=== PATIENT | female | born 1955 | race Hispanic/Latino ===

== ENCOUNTER 2024-05-02 16:20 | Emergency (ER) | payer MEDICARE ==
[~2024-05-02] VITALS: Ht 157.5 cm; Wt 85.8 kg
[2024-05-02] MEDS ORDERED: METFORMIN HCL500 M2 PO (17:31)
[2024-05-02] MEDS ORDERED: ATORVASTATIN CA20 MG PO (17:31)
[2024-05-02] MEDS ORDERED: AMLODIPINE BESY10 MG PO (18:15)
[2024-05-02] MEDS ORDERED: ALIGN4 MG (18:15)
[2024-05-02] MEDS ORDERED: BENICAR HCT 401 EAC1 (18:15)
[2024-05-02] MEDS ORDERED: PROTONIX20 MG PO (18:15)
[2024-05-02] MEDS ORDERED: IOPAMIDOL 370 MG/ML 100 ML INFUS..BTL INJ ONE (18:17)
[2024-05-02] MEDS: SODIUM CHLORIDE 0.9% 1000ML 1,000 ML IV SCH (18:30)
[2024-05-02 19:35] VITALS: PULSE 62; RESP 17; TEMP 97.8
[2024-05-02] MEDS ORDERED: PANTOPRAZOLE SO40 MG PO (19:37)
[2024-05-02 19:40] VITALS: BP 156/77; PULSE 62; RESP 17; TEMP 97.8; O2SAT 98
== END 2024-05-02 19:43 | disposition home or self-care (01) ==
LOC: FSED 16:25
DX: R10.11 Right upper quadrant pain (principal); K29.70 Gastritis, unspecified, without bleeding; K59.00 Constipation, unspecified; R19.09 Other intra-abdominal and pelvic swelling, mass and lump; E11.65 Type 2 diabetes mellitus with hyperglycemia; I10 Essential (primary) hypertension; E78.5 Hyperlipidemia, unspecified; N28.1 Cyst of kidney, acquired; E66.01 Morbid (severe) obesity due to excess calories
CPT/HCPCS: 74177; 80048; 80076; 81003; 82553; 84484; 85025; 93005; 96374; 99284; J2470; J7030; Q9967